=== PATIENT | female | born 1950 | race African-American/Black ===

== ENCOUNTER 2022-04-11 17:27 | Inpatient (IN) | payer MEDICARE, OTHER ==
[~2022-04-11] VITALS: Ht 165.1 cm; Wt 127.0 kg
[2022-04-11 18:42] LABS: BASOPHILS % 0.6 % (0.0-1.0); EOSINOPHILS # (AUTO) 0.1 (0.0-0.4); EOSINOPHILS % 1.6 % (0.0-6.0); HEMATOCRIT 29.9 % (34.2-44.1); HEMOGLOBIN 9.4 g/dL (12.0-16.0); LYMPHOCYTES # (AUTO) 0.9 (1.0-3.2); LYMPHOCYTES % 12.9 % (18.0-39.1); MEAN CORPUSCULAR HEMOGLOBIN 28.8 pg (28-32); MEAN CORPUSCULAR HGB CONC 31.4 g/dL (31-35); MEAN CORPUSCULAR VOLUME 91.7 fL (81-99); MONOCYTES # (AUTO) 0.8 (0.2-0.8); MONOCYTES % 11.7 % (4.4-11.3); NEUTROPHILS % 72.6 % (38.7-80.0); PLATELET COUNT 342 x10e3/uL (140-360); RED BLOOD COUNT 3.26 x10e6/uL (3.6-5.1)
[2022-04-11] MEDS: ONDANSETRON HCL INJ 2MG/ML 2ML 2 MG/ML VIAL IV PRN (19:00)
[2022-04-11] MEDS: SODIUM CHLORIDE 0.9% 1000ML 1,000 ML IV SCH (19:00)
[2022-04-11] MEDS: Morphine 4mg INJECTION 4 MG/ML INJ IV PRN (19:00)
[2022-04-11 19:03] LABS: ALBUMIN 2.7 g/dL (3.5-5.0); ALBUMIN/GLOBULIN RATIO 0.7 (0.8-2.0); ANION GAP 16.2 mmol/L (8-16); CALCIUM 8.3 mg/dL (8.4-10.2); CREATININE, SERUM 1.22 mg/dL (0.57-1.11); POTASSIUM 4.2 mmol/L (3.5-5.1)
[2022-04-11 20:00] VITALS: BP 160/52
[2022-04-12] VITALS (7 sets, daily range): BP systolic 147–172; BP diastolic 43–58
[2022-04-12] MEDS: ONDANSETRON HCL INJ 2MG/ML 2ML 2 MG/ML VIAL IV PRN (02:13)
[2022-04-12] MEDS: Morphine 4mg INJECTION 4 MG/ML INJ IV PRN ×3 (02:13→16:56)
[2022-04-12] MEDS ORDERED: ALBUTEROL/IPRATROPIUM 3 ML NEB NEB PRN (02:15)
[2022-04-12] MEDS ORDERED: ACETAMINOPHEN 325 MG TAB PO PRN (02:15)
[2022-04-12] MEDS ORDERED: DOCUSATE SODIUM 100 MG CAP PO PRN (02:15)
[2022-04-12] MEDS ORDERED: DIPHENHYDRAMINE HCL 25 MG CAP PO PRN (02:15)
[2022-04-12] MEDS ORDERED: MELATONIN 5 MG TABLET PO PRN (02:15)
[2022-04-12] MEDS ORDERED: POTASSIUM CHLORIDE 20 MEQ TAB CR PO PRN (02:15)
[2022-04-12] MEDS ORDERED: ONDANSETRON HCL INJ 2MG/ML 2ML 2 MG/ML VIAL IV PRN (02:15)
[2022-04-12] MEDS ORDERED: SIMETHICONE 80 MG CHEW PO PRN (02:15)
[2022-04-12] MEDS ORDERED: DEXTROSE 50% SYRINGE 50 ML IV PRN (02:15)
[2022-04-12] MEDS ORDERED: BENZONATATE 100 MG CAP PO PRN (02:15)
[2022-04-12] MEDS: SODIUM CHLORIDE 0.9% 1000ML 1,000 ML IV SCH ×3 (03:00→17:11)
[2022-04-12 04:55] LABS: BASOPHILS # (AUTO) 0.1 (0.0-0.1); BASOPHILS % 0.8 % (0.0-1.0); EOSINOPHILS # (AUTO) 0.1 (0.0-0.4); EOSINOPHILS % 1.8 % (0.0-6.0); HEMATOCRIT 27.1 % (34.2-44.1); HEMOGLOBIN 8.3 g/dL (12.0-16.0); LYMPHOCYTES # (AUTO) 1.1 (1.0-3.2); LYMPHOCYTES % 17.3 % (18.0-39.1); MEAN CORPUSCULAR HEMOGLOBIN 28.1 pg (28-32); MEAN CORPUSCULAR HGB CONC 30.6 g/dL (31-35); MEAN CORPUSCULAR VOLUME 91.9 fL (81-99); MONOCYTES % 14.4 % (4.4-11.3); NEUTROPHILS # (AUTO) 4.3 (2.1-6.9); NEUTROPHILS % 64.8 % (38.7-80.0); PLATELET COUNT 309 x10e3/uL (140-360); RED BLOOD COUNT 2.95 x10e6/uL (3.6-5.1); RED CELL DISTRIBUTION WIDTH 13.9 % (11.7-14.4)
[2022-04-12 05:13] LABS: ANION GAP 15.9 mmol/L (8-16); CREATININE, SERUM 1.13 mg/dL (0.57-1.11); POTASSIUM 3.9 mmol/L (3.5-5.1)
[2022-04-12] MEDS: PANTOPRAZOLE SOD 40 MG TABEC PO SCH (08:30)
[2022-04-12] MEDS ORDERED: TRAMADOL HCL 50 MG TAB PO PRN (12:15)
[2022-04-12 12:28] LABS: CHOL/HDL RATIO 4.9 (3.0-3.6)
[2022-04-12] MEDS ORDERED: MIDAZOLAM HCL 2 MG/2 ML VIAL ONE (12:34)
[2022-04-12] MEDS ORDERED: FENTANYL CITRATE/PF 100MCG/2 ML INJ ONE (12:34)
[2022-04-12] MEDS ORDERED: ENOXAPARIN SOD INJ 40 MG/0.4 ML SYR SC SCH (17:00)
[2022-04-13] VITALS (7 sets, daily range): BP systolic 141–183; BP diastolic 42–67
[2022-04-13] MEDS: SODIUM CHLORIDE 0.9% 1000ML 1,000 ML IV SCH ×3 (03:53→19:00)
[2022-04-13 05:00] LABS: BASOPHILS % 0.5 % (0.0-1.0); EOSINOPHILS # (AUTO) 0.1 (0.0-0.4); EOSINOPHILS % 1.8 % (0.0-6.0); HEMATOCRIT 24.6 % (34.2-44.1); HEMOGLOBIN 7.5 g/dL (12.0-16.0); MEAN CORPUSCULAR HEMOGLOBIN 28.5 pg (28-32); MEAN CORPUSCULAR HGB CONC 30.5 g/dL (31-35); MEAN CORPUSCULAR VOLUME 93.5 fL (81-99); MONOCYTES # (AUTO) 0.9 (0.2-0.8); MONOCYTES % 13.6 % (4.4-11.3); NEUTROPHILS # (AUTO) 4.2 (2.1-6.9); PLATELET COUNT 301 x10e3/uL (140-360); RED BLOOD COUNT 2.63 x10e6/uL (3.6-5.1)
[2022-04-13 05:21] LABS: ANION GAP 13.2 mmol/L (8-16); CALCIUM 7.7 mg/dL (8.4-10.2); CREATININE, SERUM 1.19 mg/dL (0.57-1.11); POTASSIUM 4.2 mmol/L (3.5-5.1)
[2022-04-13] MEDS ORDERED: NEOSTIGMINE 1 MG/ML 10ML VIAL ONE ×2 (06:21→12:16)
[2022-04-13] MEDS ORDERED: SODIUM CHLORIDE 0.9% 250ML 250 ML IV ONE (07:00)
[2022-04-13] MEDS: PANTOPRAZOLE SOD 40 MG TABEC PO SCH (07:30)
[2022-04-13] MEDS ORDERED: HYDROMORPHONE 1MG/1ML INJ ONE (07:37)
[2022-04-13] MEDS ORDERED: KETOROLAC TROMETHAMINE 30 MG/ML VIAL IV PRN (08:30)
[2022-04-13] MEDS ORDERED: ZOLPIDEM TARTRATE 5 MG TAB PO PRN (08:30)
[2022-04-13] MEDS ORDERED: ACETAMINOPHEN 650 MG SUPP PR PRN (08:30)
[2022-04-13] MEDS ORDERED: ONDANSETRON HCL INJ 2MG/ML 2ML 2 MG/ML VIAL IV PRN (08:30)
[2022-04-13] MEDS ORDERED: DIPHENHYDRAMINE HCL INJ 50 MG/ML VIAL IV PRN (08:30)
[2022-04-13] MEDS ORDERED: ASPIRIN 325 MG TAB PO SCH (09:00)
[2022-04-13] MEDS: HYDROCODONE/APAP 5MG-325MG TAB PO PRN ×3 (10:38→23:44)
[2022-04-13] MEDS ORDERED: PROPOFOL IV EMULSION 10 MG/ML 20 ML VIAL ONE (12:16)
[2022-04-13] MEDS ORDERED: ACETAMINOPHEN 1000 MG/100 ML IV ONE (12:16)
[2022-04-13] MEDS ORDERED: SEVOFLURANE INHAL SOLN 250 ML PEN BTL ONE (12:16)
[2022-04-13] MEDS ORDERED: GLYCOPYRROLATE INJ 0.2 MG/ML VIAL ONE (12:16)
[2022-04-13] MEDS ORDERED: POVIDONE IODINE 0.05% 0.05 % ML PO ONE (12:16)
[2022-04-13] MEDS ORDERED: LIDOCAINE HCL 2% LOCAL INJ 5 ML SDV VIAL INJ ONE (12:16)
[2022-04-13] MEDS ORDERED: ONDANSETRON HCL INJ 2MG/ML 2ML 2 MG/ML VIAL ONE (12:16)
[2022-04-13] MEDS ORDERED: ROCURONIUM BROMIDE 10 MG/ML 5ML VIAL IV ONE (12:16)
[2022-04-13] MEDS: Morphine 4mg INJECTION 4 MG/ML INJ IV PRN (14:30)
[2022-04-13] MEDS ORDERED: CELECOXIB 200 MG CAP PO SCH (17:00)
[2022-04-13] MEDS: CELECOXIB 200 MG CAP PO SCH (20:27)
[2022-04-13] MEDS: ASPIRIN 325 MG TAB PO SCH (20:27)
[2022-04-13] MEDS: HYDRALAZINE HCL 20 MG/ML VIAL IV PRN (20:28)
[2022-04-14] VITALS (9 sets, daily range): BP systolic 117–154; BP diastolic 40–55
[2022-04-14 04:51] LABS: HEMATOCRIT 23.3 % (34.2-44.1); HEMOGLOBIN 7.3 g/dL (12.0-16.0)
[2022-04-14] MEDS: PANTOPRAZOLE SOD 40 MG TABEC PO SCH (07:22)
[2022-04-14] MEDS ORDERED: ACETAMINOPHEN 1000 MG/100 ML IV PRN (08:30)
[2022-04-14] MEDS: HYDROCODONE/APAP 5MG-325MG TAB PO PRN ×3 (09:10→19:54)
[2022-04-14] MEDS: CELECOXIB 200 MG CAP PO SCH ×2 (09:10→17:50)
[2022-04-14] MEDS: ASPIRIN 325 MG TAB PO SCH ×2 (09:10→17:49)
[2022-04-15] VITALS: BP 127/40
[2022-04-15 04:00] VITALS: BP 120/43
[2022-04-15 05:16] LABS: BASOPHILS % 0.5 % (0.0-1.0); EOSINOPHILS # (AUTO) 0.2 (0.0-0.4); EOSINOPHILS % 2.7 % (0.0-6.0); LYMPHOCYTES # (AUTO) 1.2 (1.0-3.2); LYMPHOCYTES % 14.6 % (18.0-39.1); MEAN CORPUSCULAR HEMOGLOBIN 28.4 pg (28-32); MEAN CORPUSCULAR HGB CONC 30.2 g/dL (31-35); MEAN CORPUSCULAR VOLUME 94.2 fL (81-99); MONOCYTES # (AUTO) 1.1 (0.2-0.8); MONOCYTES % 13.7 % (4.4-11.3); NEUTROPHILS # (AUTO) 5.5 (2.1-6.9); NEUTROPHILS % 67.8 % (38.7-80.0); PLATELET COUNT 268 x10e3/uL (140-360); RED BLOOD COUNT 2.25 x10e6/uL (3.6-5.1); RED CELL DISTRIBUTION WIDTH 14.2 % (11.7-14.4)
[2022-04-15 05:27] LABS: HEMOGLOBIN 6.4 g/dL (12.0-16.0)
[2022-04-15 05:28] LABS: HEMATOCRIT 21.2 % (34.2-44.1)
[2022-04-15 05:41] LABS: ANION GAP 12.2 mmol/L (8-16); CALCIUM 7.7 mg/dL (8.4-10.2); CREATININE, SERUM 1.42 mg/dL (0.57-1.11); POTASSIUM 4.2 mmol/L (3.5-5.1)
[2022-04-15 06:18] LABS: HEMATOCRIT 23.7 % (34.2-44.1); HEMOGLOBIN 7.3 g/dL (12.0-16.0)
[2022-04-15 08:12] VITALS: BP 105/86
[2022-04-15] MEDS: PANTOPRAZOLE SOD 40 MG TABEC PO SCH (08:30)
[2022-04-15] MEDS: CELECOXIB 200 MG CAP PO SCH ×2 (10:17→16:29)
[2022-04-15] MEDS: FERROUS SULFATE 325 MG TAB PO SCH ×2 (10:17→16:30)
[2022-04-15] MEDS: ASPIRIN 325 MG TAB PO SCH ×2 (10:17→16:29)
[2022-04-15] MEDS: HYDROCODONE/APAP 5MG-325MG TAB PO PRN ×2 (12:23→16:30)
[2022-04-15 12:54] VITALS: BP 130/44
[2022-04-15 16:10] VITALS: BP 167/51
[2022-04-15 20:00] VITALS: BP 143/47
[2022-04-15] MEDS: HYDROCODONE/APAP 7.5MG-325MG 1 EA TAB PO PRN (20:50)
[2022-04-16] VITALS (8 sets, daily range): BP systolic 124–170; BP diastolic 43–58
[2022-04-16 07:01] LABS: ANION GAP 12.3 mmol/L (8-16); CALCIUM 8.2 mg/dL (8.4-10.2); CREATININE, SERUM 1.23 mg/dL (0.57-1.11); POTASSIUM 4.3 mmol/L (3.5-5.1)
[2022-04-16 08:50] LABS: BASOPHILS % 0.5 % (0.0-1.0); EOSINOPHILS # (AUTO) 0.3 (0.0-0.4); EOSINOPHILS % 3.4 % (0.0-6.0); HEMATOCRIT 23.7 % (34.2-44.1); HEMOGLOBIN 7.3 g/dL (12.0-16.0); LYMPHOCYTES # (AUTO) 0.9 (1.0-3.2); LYMPHOCYTES % 11.5 % (18.0-39.1); MEAN CORPUSCULAR HEMOGLOBIN 28.9 pg (28-32); MEAN CORPUSCULAR HGB CONC 30.8 g/dL (31-35); MEAN CORPUSCULAR VOLUME 93.7 fL (81-99); MONOCYTES # (AUTO) 0.9 (0.2-0.8); NEUTROPHILS # (AUTO) 5.8 (2.1-6.9); NEUTROPHILS % 72.2 % (38.7-80.0); PLATELET COUNT 325 x10e3/uL (140-360); RED BLOOD COUNT 2.53 x10e6/uL (3.6-5.1); RED CELL DISTRIBUTION WIDTH 14.1 % (11.7-14.4)
[2022-04-16] MEDS: PANTOPRAZOLE SOD 40 MG TABEC PO SCH (08:50)
[2022-04-16] MEDS: ASPIRIN 325 MG TAB PO SCH ×2 (09:28→16:46)
[2022-04-16] MEDS: FERROUS SULFATE 325 MG TAB PO SCH ×2 (09:29→16:46)
[2022-04-16] MEDS: CELECOXIB 200 MG CAP PO SCH ×2 (09:29→16:47)
[2022-04-16] MEDS: DOCUSATE SODIUM 100 MG CAP PO PRN (09:32)
[2022-04-16] MEDS: HYDROCODONE/APAP 7.5MG-325MG 1 EA TAB PO PRN (11:28)
[2022-04-16] MEDS: Morphine 4mg INJECTION 4 MG/ML INJ IV PRN (18:12)
[2022-04-17 05:17] LABS: BASOPHILS % 0.5 % (0.0-1.0); EOSINOPHILS # (AUTO) 0.3 (0.0-0.4); EOSINOPHILS % 3.8 % (0.0-6.0); HEMATOCRIT 24.1 % (34.2-44.1); HEMOGLOBIN 7.4 g/dL (12.0-16.0); LYMPHOCYTES # (AUTO) 1.1 (1.0-3.2); LYMPHOCYTES % 14.4 % (18.0-39.1); MEAN CORPUSCULAR HGB CONC 30.7 g/dL (31-35); MEAN CORPUSCULAR VOLUME 94.5 fL (81-99); MONOCYTES # (AUTO) 0.9 (0.2-0.8); MONOCYTES % 11.3 % (4.4-11.3); NEUTROPHILS # (AUTO) 5.4 (2.1-6.9); NEUTROPHILS % 68.6 % (38.7-80.0); PLATELET COUNT 303 x10e3/uL (140-360); RED BLOOD COUNT 2.55 x10e6/uL (3.6-5.1)
[2022-04-17 05:37] LABS: ANION GAP 13.5 mmol/L (8-16); CALCIUM 8.2 mg/dL (8.4-10.2); CREATININE, SERUM 1.06 mg/dL (0.57-1.11); POTASSIUM 4.5 mmol/L (3.5-5.1)
[2022-04-17] MEDS: FERROUS SULFATE 325 MG TAB PO SCH ×2 (08:00→16:48)
[2022-04-17 08:11] VITALS: BP 184/61
[2022-04-17 08:12] VITALS: BP 184/61
[2022-04-17] MEDS: ASPIRIN 325 MG TAB PO SCH ×2 (09:42→17:26)
[2022-04-17] MEDS: PANTOPRAZOLE SOD 40 MG TABEC PO SCH (09:42)
[2022-04-17] MEDS: CELECOXIB 200 MG CAP PO SCH ×2 (09:42→17:26)
[2022-04-17] MEDS: DOCUSATE SODIUM 100 MG CAP PO PRN ×2 (09:46→17:26)
[2022-04-17 11:37] VITALS: BP 162/57
[2022-04-17] MEDS: HYDROCODONE/APAP 7.5MG-325MG 1 EA TAB PO PRN ×2 (15:13→21:53)
[2022-04-17 16:36] VITALS: BP 174/52
[2022-04-17 20:00] VITALS: BP 146/45
[2022-04-18] VITALS (7 sets, daily range): BP systolic 146–160; BP diastolic 49–69
[2022-04-18 06:31] LABS: ANION GAP 12.5 mmol/L (8-16); CALCIUM 8.1 mg/dL (8.4-10.2); CREATININE, SERUM 1.25 mg/dL (0.57-1.11); POTASSIUM 4.5 mmol/L (3.5-5.1)
[2022-04-18] MEDS: FERROUS SULFATE 325 MG TAB PO SCH ×3 (07:35→18:17)
[2022-04-18 08:02] LABS: BASOPHILS % 0.5 % (0.0-1.0); EOSINOPHILS # (AUTO) 0.2 (0.0-0.4); EOSINOPHILS % 2.8 % (0.0-6.0); HEMATOCRIT 23.4 % (34.2-44.1); HEMOGLOBIN 7.2 g/dL (12.0-16.0); LYMPHOCYTES # (AUTO) 1.1 (1.0-3.2); MEAN CORPUSCULAR HGB CONC 30.8 g/dL (31-35); MEAN CORPUSCULAR VOLUME 94.4 fL (81-99); MONOCYTES # (AUTO) 0.9 (0.2-0.8); MONOCYTES % 11.3 % (4.4-11.3); NEUTROPHILS # (AUTO) 5.8 (2.1-6.9); NEUTROPHILS % 71.1 % (38.7-80.0); PLATELET COUNT 343 x10e3/uL (140-360); RED BLOOD COUNT 2.48 x10e6/uL (3.6-5.1); RED CELL DISTRIBUTION WIDTH 14.1 % (11.7-14.4)
[2022-04-18] MEDS: PANTOPRAZOLE SOD 40 MG TABEC PO SCH (09:24)
[2022-04-18] MEDS: ASPIRIN 325 MG TAB PO SCH ×2 (09:24→18:02)
[2022-04-18] MEDS: CELECOXIB 200 MG CAP PO SCH ×2 (09:24→18:02)
[2022-04-18] MEDS: DOCUSATE SODIUM 100 MG CAP PO PRN ×2 (09:26→18:02)
[2022-04-18] MEDS: HYDROCODONE/APAP 5MG-325MG TAB PO PRN ×2 (10:20→18:16)
[2022-04-19] VITALS (7 sets, daily range): BP systolic 129–158; BP diastolic 41–48
[2022-04-19] MEDS: CELECOXIB 200 MG CAP PO SCH ×2 (08:09→16:13)
[2022-04-19] MEDS: PANTOPRAZOLE SOD 40 MG TABEC PO SCH (08:09)
[2022-04-19] MEDS: FERROUS SULFATE 325 MG TAB PO SCH ×2 (08:10→16:13)
[2022-04-19] MEDS: ASPIRIN 325 MG TAB PO SCH ×2 (08:10→16:13)
[2022-04-19] MEDS: HYDROCODONE/APAP 7.5MG-325MG 1 EA TAB PO PRN (13:40)
[2022-04-19 13:59] LABS: HEMATOCRIT 28.4 % (34.2-44.1); HEMOGLOBIN 8.6 g/dL (12.0-16.0)
[2022-04-19] MEDS: HYDROCODONE/APAP 5MG-325MG TAB PO PRN (22:17)
[2022-04-20] VITALS (8 sets, daily range): BP systolic 129–165; BP diastolic 43–69
[2022-04-20] MEDS: PANTOPRAZOLE SOD 40 MG TABEC PO SCH (08:27)
[2022-04-20] MEDS: CELECOXIB 200 MG CAP PO SCH ×2 (08:28→17:16)
[2022-04-20] MEDS: ASPIRIN 325 MG TAB PO SCH ×2 (08:28→17:16)
[2022-04-20] MEDS: FERROUS SULFATE 325 MG TAB PO SCH ×2 (08:28→17:17)
[2022-04-20] MEDS: HYDROCODONE/APAP 7.5MG-325MG 1 EA TAB PO PRN ×2 (10:44→18:54)
[2022-04-20] MEDS ORDERED: ZOLPIDEM TARTRATE 5 MG TAB PO PRN (10:45)
[2022-04-20] MEDS ORDERED: HYDROCODONE/APAP 5MG-325MG TAB PO PRN (10:45)
[2022-04-21] VITALS (8 sets, daily range): BP systolic 138–170; BP diastolic 39–60
[2022-04-21] MEDS: FERROUS SULFATE 325 MG TAB PO SCH ×2 (08:00→16:17)
[2022-04-21] MEDS: PANTOPRAZOLE SOD 40 MG TABEC PO SCH (08:30)
[2022-04-21] MEDS: CELECOXIB 200 MG CAP PO SCH ×2 (08:30→16:16)
[2022-04-21] MEDS: ASPIRIN 325 MG TAB PO SCH ×2 (08:31→16:16)
[2022-04-21] MEDS: HYDROCODONE/APAP 7.5MG-325MG 1 EA TAB PO PRN ×2 (13:55→22:19)
[2022-04-22] VITALS (9 sets, daily range): BP systolic 138–174; BP diastolic 42–63
[2022-04-22] MEDS: ASPIRIN 325 MG TAB PO SCH ×2 (08:59→16:25)
[2022-04-22] MEDS: PANTOPRAZOLE SOD 40 MG TABEC PO SCH (08:59)
[2022-04-22] MEDS: CELECOXIB 200 MG CAP PO SCH ×2 (08:59→16:26)
[2022-04-22] MEDS: FERROUS SULFATE 325 MG TAB PO SCH ×2 (08:59→16:25)
[2022-04-22] MEDS: HYDROCODONE/APAP 7.5MG-325MG 1 EA TAB PO PRN ×2 (12:28→21:44)
[2022-04-23] VITALS (7 sets, daily range): BP systolic 141–179; BP diastolic 46–60
[2022-04-23] MEDS: ASPIRIN 325 MG TAB PO SCH ×2 (09:40→16:44)
[2022-04-23] MEDS: PANTOPRAZOLE SOD 40 MG TABEC PO SCH (09:40)
[2022-04-23] MEDS: FERROUS SULFATE 325 MG TAB PO SCH ×2 (09:40→16:44)
[2022-04-23] MEDS: CELECOXIB 200 MG CAP PO SCH ×2 (09:40→16:44)
[2022-04-23 10:23] LABS: BASOPHILS # (AUTO) 0.1 (0.0-0.1); BASOPHILS % 0.7 % (0.0-1.0); EOSINOPHILS # (AUTO) 0.3 (0.0-0.4); EOSINOPHILS % 4.1 % (0.0-6.0); HEMATOCRIT 27.7 % (34.2-44.1); HEMOGLOBIN 8.3 g/dL (12.0-16.0); LYMPHOCYTES # (AUTO) 1.5 (1.0-3.2); LYMPHOCYTES % 18.6 % (18.0-39.1); MEAN CORPUSCULAR HEMOGLOBIN 28.7 pg (28-32); MEAN CORPUSCULAR VOLUME 95.8 fL (81-99); MONOCYTES # (AUTO) 0.8 (0.2-0.8); MONOCYTES % 10.5 % (4.4-11.3); NEUTROPHILS # (AUTO) 5.1 (2.1-6.9); NEUTROPHILS % 63.9 % (38.7-80.0); PLATELET COUNT 364 x10e3/uL (140-360); RED BLOOD COUNT 2.89 x10e6/uL (3.6-5.1); RED CELL DISTRIBUTION WIDTH 15.1 % (11.7-14.4)
[2022-04-23 10:35] LABS: ANION GAP 13.9 mmol/L (8-16); CALCIUM 8.6 mg/dL (8.4-10.2); CREATININE, SERUM 1.38 mg/dL (0.57-1.11); POTASSIUM 4.9 mmol/L (3.5-5.1)
[2022-04-23] MEDS: DOCUSATE SODIUM 100 MG CAP PO PRN (10:43)
[2022-04-23] MEDS: HYDROCODONE/APAP 7.5MG-325MG 1 EA TAB PO PRN (21:26)
[2022-04-24] VITALS (8 sets, daily range): BP systolic 128–158; BP diastolic 39–58
[2022-04-24] MEDS: FERROUS SULFATE 325 MG TAB PO SCH ×2 (08:00→17:00)
[2022-04-24] MEDS: PANTOPRAZOLE SOD 40 MG TABEC PO SCH (10:04)
[2022-04-24] MEDS: ASPIRIN 325 MG TAB PO SCH ×2 (10:05→17:40)
[2022-04-24] MEDS: CELECOXIB 200 MG CAP PO SCH ×2 (10:05→17:40)
[2022-04-25] VITALS (8 sets, daily range): BP systolic 136–180; BP diastolic 47–59
[2022-04-25] MEDS: PANTOPRAZOLE SOD 40 MG TABEC PO SCH (08:44)
[2022-04-25] MEDS: ASPIRIN 325 MG TAB PO SCH ×2 (08:44→17:27)
[2022-04-25] MEDS: FERROUS SULFATE 325 MG TAB PO SCH ×2 (08:44→17:27)
[2022-04-25] MEDS: CELECOXIB 200 MG CAP PO SCH ×2 (08:44→17:27)
[2022-04-25] MEDS: HYDRALAZINE HCL 20 MG/ML VIAL IV PRN (09:15)
[2022-04-26] VITALS (8 sets, daily range): BP systolic 131–169; BP diastolic 49–71
[2022-04-26] MEDS: FERROUS SULFATE 325 MG TAB PO SCH ×2 (08:55→16:46)
[2022-04-26] MEDS: CELECOXIB 200 MG CAP PO SCH ×2 (08:55→16:46)
[2022-04-26] MEDS: PANTOPRAZOLE SOD 40 MG TABEC PO SCH (08:55)
[2022-04-26] MEDS: ASPIRIN 325 MG TAB PO SCH ×2 (08:55→16:46)
[2022-04-26] MEDS ORDERED: ONDANSETRON HCL 4 MG ORAL DISINTEGRATING TAB PO PRN (09:30)
[2022-04-26] MEDS ORDERED: CALTRATE 600 +1 EAC1 PO (10:40)
[2022-04-26] MEDS ORDERED: Docusate Sodium PO (10:40)
[2022-04-26] MEDS ORDERED: PROTONIX40 MG/ML PO (10:40)
[2022-04-26] MEDS ORDERED: Celecoxib PO (10:40)
[2022-04-26] MEDS ORDERED: ACETAMINOPHEN325 M1 PO (10:40)
[2022-04-26] MEDS ORDERED: Ferrous Sulfate PO (10:40)
[2022-04-26] MEDS: DOCUSATE SODIUM 100 MG CAP PO PRN (16:49)
[2022-04-27] VITALS (7 sets, daily range): BP systolic 57–170; BP diastolic 50–69
[2022-04-27] MEDS: ASPIRIN 325 MG TAB PO SCH ×2 (10:16→16:56)
[2022-04-27] MEDS: FERROUS SULFATE 325 MG TAB PO SCH ×2 (10:16→16:56)
[2022-04-27] MEDS: CELECOXIB 200 MG CAP PO SCH ×2 (10:16→16:56)
[2022-04-27] MEDS: PANTOPRAZOLE SOD 40 MG TABEC PO SCH (10:16)
== END 2022-04-27 22:35 | DRG 493 ==
LOC: ER 17:28 → ERHOLD 17:48 → MED/SURG 22:52 → MED/SURG2 04-17 15:39
PROVIDERS: ADMIT Internal Medicine; ATTEND Internal Medicine
PROC: 0QSG04Z Reposition Right Tibia with Internal Fixation Device, Open Approach (ICD-10-PCS; 2022-04-13)
PROC: 30233N1 Transfusion of Nonautologous Red Blood Cells into Peripheral Vein, Percutaneous Approach (ICD-10-PCS; principal; 2022-04-13 06:58)
DX: M80.861A Other osteoporosis with current pathological fracture, right lower leg, initial encounter for fracture (principal); D62 Acute posthemorrhagic anemia; Z68.42 Body mass index [BMI] 45.0-49.9, adult; N17.9 Acute kidney failure, unspecified; E11.22 Type 2 diabetes mellitus with diabetic chronic kidney disease; I12.9 Hypertensive chronic kidney disease with stage 1 through stage 4 chronic kidney disease, or unspecified chronic kidney disease; N18.30 Chronic kidney disease, stage 3 unspecified; E03.9 Hypothyroidism, unspecified; M17.12 Unilateral primary osteoarthritis, left knee; W01.0XXA Fall on same level from slipping, tripping and stumbling without subsequent striking against object, initial encounter; Y93.89 Activity, other specified; Y92.019 Unspecified place in single-family (private) house as the place of occurrence of the external cause; E66.01 Morbid (severe) obesity due to excess calories; Z90.710 Acquired absence of both cervix and uterus; Z91.041 Radiographic dye allergy status; Z20.822 Contact with and (suspected) exposure to COVID-19
CPT/HCPCS: 0223U; 36415; 71045; 76000; 80048; 80053; 80061; 82948; 83036; 85014; 85018; 85025; 86850; 86900; 86920; 93005; 94799; 96360; 97139; 99251; 99284; C1713; J0360; J0690; J1170; J1885; J2001; J2250; J2270; J2405; J2710; J3010; J7030; P9016